=== PATIENT | female | born 2005 | race Caucasian/White ===

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

== ENCOUNTER → 2025-01-11 | Outpatient (CLI) | payer OTHER | LOC: LAB SHORT 18:41 → LAB 18:41 | DX: N39.0 Urinary tract infection, site not specified (principal) | CPT/HCPCS: 87086 ==

== ENCOUNTER → 2025-06-05 | Outpatient (CLI) | payer SELFPAY | LOC: LAB 11:29 → LAB SHORT 11:29 | DX: R35.0 Frequency of micturition (principal) | CPT/HCPCS: 87077; 87086; 87186 ==